=== PATIENT | female | born 1955 | race Caucasian/White ===

== ENCOUNTER 2016-12-28 08:53 | Outpatient (CLI) | payer MEDICARE ==
[2016-12-28 12:18] LABS: ALT (SGPT) 15 U/L (8-55); AST (SGOT) 17 U/L (5-34); Albumin 3.8 g/dL (3.4-4.8); Alkaline Phosphatase 74 U/L (40-150); Anion Gap 17 mmol/L (10-20); BUN (Urea Nitrogen) 24 mg/dL (9.8-20.1); Bilirubin, Total 0.4 mg/dL (0.2-1.2); Calc. Creatinine Clearance 0 mL/min (70-130); Calcium 9.2 mg/dL (7.8-10.44); Carbon Dioxide 25 mmol/L (23-31); Cardiac Risk 4.2 (Less than 4.5); Chloride 105 mmol/L (98-107); Cholesterol 178 mg/dl (< 200 Desired); Estimated GFR-MDRD 46; Globulin 3.4 g/dL (2.4-3.5); Glucose 141 mg/dL (80-115); HDL Cholesterol 42 mg/dL (>60 Neg Risk); LDL Cholesterol, Calculated 104 mg/dL; Potassium 4.9 mmol/L (3.5-5.1); Protein, Total 7.2 g/dL (6.0-8.3); Sodium 142 mmol/L (136-145); Triglycerides 159 mg/dL (Less than 150)
[2016-12-28 12:31] LABS: Hemoglobin A1c 5.7 % (4.0-6.0)
== END 2016-12-28 08:54 | disposition home or self-care (01) ==
LOC: HPCALD 08:53
PROVIDERS: ATTEND Family Medicine
DX: E78.2 Mixed hyperlipidemia (principal); R73.03 Prediabetes; I10 Essential (primary) hypertension
CPT/HCPCS: 36415; 80053; 80061; 83036

== ENCOUNTER 2017-09-14 09:58 | Outpatient (CLI) | payer MEDICARE ==
[2017-09-14 18:16] LABS: #Lymphocytes 1.5 thou/uL (1.20-3.40); #Monocytes 0.3 thou/uL (0.11-0.59); #Neutrophils 3.7 thou/uL (1.40-6.50); %Basophils 0.2 % (0.0-1.0); %Eosinophils 0.2 % (0.0-10.0); %Lymphocytes 26.7 % (21.0-51.0); %Neutrophils 66.9 % (42.0-75.0); Hemoglobin 11.6 g/dL (12.0-16.0); Mean Corpuscular HGB CONC 32.7 g/dL (32.0-36.0); Mean Corpuscular Hemoglobin 28.6 pg (27.0-31.0); Mean Corpuscular Volume 87.6 fl (81.0-99.0); Mean Platelet Volume 8.5 fL (7.4-10.4); Platelet Count 287 thou/uL (130-400); RBC Distribution Width 12.5 % (11.5-14.5); Red Blood Cell (RBC) Count 4.04 mill/uL (4.20-5.40); White Blood Cell (WBC) Count 5.5 thou/uL (4.8-10.8)
[2017-09-14 18:30] LABS: Anion Gap 14 mmol/L (10-20); BUN (Urea Nitrogen) 22 mg/dL (9.8-20.1); Calc. Creatinine Clearance 0 mL/min (70-130); Calcium 9.4 mg/dL (7.8-10.44); Carbon Dioxide 28 mmol/L (23-31); Chloride 99 mmol/L (98-107); Estimated GFR-MDRD 42; Glucose 112 mg/dL (80-115); Phosphorus 3.7 mg/dL (2.3-4.7); Potassium 4.2 mmol/L (3.5-5.1); Sodium 137 mmol/L (136-145)
[2017-09-14 19:03] LABS: Creatinine, Urine 52.78 mg/dL (47-110)
--- NOTE | 2017-09-14 21:50 | ULT ---
BILATERAL RENAL ULTRASOUND 09/14/17 Ultrasonography of the kidneys was performed for evaluation of chronic renal disease. The right kidney measures 9.0 x 5.3 x 5.3 cm. The left kidney measures 9.6 x 5.3 x 4.3 cm. Cortex is ample around each kidney. The cortical echogenicity is normal bilaterally. No mass or hydronephrosis was seen in either kidney. No images of the urinary bladder were provided. IMPRESSION: No significant renal finding. POS: HOME
[2017-09-16 11:13] LABS: ANA Symphony (Qualitative) Negative (Negative); ANA Symphony (Quantitative) 0.1 Ratio (<0.7 Negative); dsDNA IgG Antibody 7.5 IU/mL (<10 Negative)
== END 2017-09-14 09:59 | disposition home or self-care (01) ==
LOC: BURULT 09:58
PROVIDERS: ATTEND Internal Medicine Nephrology
DX: N18.3 Chronic kidney disease, stage 3 (moderate) (principal); E87.2 Acidosis
CPT/HCPCS: 36415; 76770; 80048; 82306; 82570; 83970; 84100; 84156; 85025; 86038; 86225

== ENCOUNTER 2018-05-17 20:24 | Observation (INO) | payer MEDICARE ==
[2018-05-17] MEDS ORDERED: predniSONE 20 MG TAB ONE (20:50)
[2018-05-17] MEDS ORDERED: AMOXicillin 250 MG CAP ONE (21:55)
--- NOTE | 2018-05-17 22:29 | RAD ---
CHEST TWO VIEWS: 05/17/18 The heart is normal in size. There is no vascular congestion, edema, or pleural effusion. There may b e some faint calcification in the aortic arch. Extensive degenerative changes are seen in the thoraci c spine. The patient probably has a hiatal hernia posterior to the heart. The lungs are mildly hypere xpanded. A thin linear line seen in the aorticopulmonary window is probably just normal structures. I doubt that it is a pneumomediastinum. IMPRESSION: No definite acute findings. POS: HOME
[2018-05-17 23:26] LABS: #Basophils 0.1 thou/uL (0.0-0.2); #Lymphocytes 0.9 thou/uL (1.20-3.40); #Monocytes 0.5 thou/uL (0.11-0.59); #Neutrophils 6.6 thou/uL (1.40-6.50); %Basophils 0.7 % (0.0-1.0); %Lymphocytes 11.5 % (21.0-51.0); %Monocytes 6.2 % (0.0-10.0); %Neutrophils 81.7 % (42.0-75.0); Anion Gap 18 mmol/L (10-20); BUN (Urea Nitrogen) 21 mg/dL (9.8-20.1); Calc. Creatinine Clearance 0 mL/min (70-130); Calcium 9.5 mg/dL (7.8-10.44); Carbon Dioxide 20 mmol/L (23-31); Chloride 101 mmol/L (98-107); Estimated GFR-MDRD 36; Glucose 178 mg/dL (80-115); Hemoglobin 10.6 g/dL (12.0-16.0); Mean Corpuscular HGB CONC 33.9 g/dL (32.0-36.0); Mean Corpuscular Hemoglobin 29.1 pg (27.0-31.0); Mean Corpuscular Volume 85.6 fL (78.0-98.0); Mean Platelet Volume 7.7 fL (7.4-10.4); Platelet Count 231 thou/uL (130-400); Potassium 3.7 mmol/L (3.5-5.1); RBC Distribution Width 14.5 % (11.5-14.5); Red Blood Cell (RBC) Count 3.63 mill/uL (4.20-5.40); Sodium 135 mmol/L (136-145); White Blood Cell (WBC) Count 8.1 thou/uL (4.8-10.8)
[2018-05-17] MEDS ORDERED: Benzonatate 100 MG CAP ONE (23:40)
[2018-05-18 03:52] VITALS: BMI 41.9
[2018-05-18] MEDS ORDERED: Ondansetron ODT 4 MG TAB SL PRN (04:37)
[2018-05-18] MEDS ORDERED: Acetaminophen 325 MG TAB PO PRN (04:37)
[2018-05-18] MEDS ORDERED: Ondansetron PF 4 MG/2 ML Vial IVP PRN (04:37)
[2018-05-18] MEDS ORDERED: HYDROcodone/Acetaminophen 5/325 mg Tablet PO PRN (04:37)
[2018-05-18] MEDS ORDERED: Benzonatate 100 MG CAP PO PRN (04:37)
[2018-05-18 04:58] VITALS: TEMP 97.4
[2018-05-18] MEDS: methylPREDNISolone Sod Succ/PF 125 MG/2 ML VIAL IVP SCH ×2 (05:28→12:30)
[2018-05-18] MEDS ORDERED: Hydrochlorothiazide 25 MG TAB PO SCH (09:00)
[2018-05-18] MEDS ORDERED: Non-Formulary Item 1 EACH (Lisinopril/Hydrochlorothiazide [Lisinopril-Hctz 10-12.5 Mg Tab PO SCH (09:00)
[2018-05-18] MEDS ORDERED: Aspirin 81 mg Enteric Coated Tablet PO SCH (09:00)
[2018-05-18] MEDS ORDERED: FLUoxetine HCl 10 MG CAP PO SCH (09:00)
[2018-05-18] MEDS ORDERED: Oxybutynin 5 MG TAB PO SCH (09:00)
[2018-05-18] MEDS ORDERED: Amlodipine 5 MG TAB PO SCH (09:00)
[2018-05-18] MEDS ORDERED: FLUOXETINE HCL PO SCH (09:00)
[2018-05-18] MEDS ORDERED: Lisinopril 10 MG TAB PO SCH (09:00)
--- NOTE | 2018-05-18 09:03 | HP ---
DATE OF ADMISSION and DISCHARGE: 05/18/2018 CHIEF COMPLAINT: Dyspnea, hypoxia. HISTORY OF PRESENT ILLNESS: A 62-year-old female, chronic smoker, presented to [facility] Emergency Department with complaints of dyspnea progressing over the last 2-3 days. She was notably hypoxic and was subsequently started on supplemental oxygen and provided nebulized treatments. The patient to this point has not had any formal diagnosis of COPD; however, as noted, she is a chronic smoker and a chest x-ray did reveal the lungs to be mildly hyperexpanded. There are no acute findings of pneumonia or other infectious etiology in the emergency department. The patient's respiratory status only mildly improved in the emergency department, thus she was admitted to the floor secondary to her hypoxia and to receive further care for her suspected chronic obstructive pulmonary disease exacerbation. Due to the lack of formal diagnosis , she was not on a controller medicine and has not had a rescue inhaler available to her home setting. Upon evaluation of the patient on the floor, she does feel to be improved as far as her respiratory status. She is currently still on supplemental oxygen. She denies having had any fevers or chills at home. She states she is more motivated to pursue smoking cessation secondary to this admission. PAST MEDICAL HISTORY: Hypertension, gastroesophageal reflux disease, hyperlipidemia, anxiety, depression, chronic back pain, sciatica. PAST SURGICAL HISTORY: Vein stripping, stent placement, cholecystectomy, sinus surgery, hysterectomy, back surgery with lumbar fusion on 02/2016, colonoscopy on 07/06/2011 was normal. SOCIAL HISTORY: Patient lives at home. She is a chronic smoker. Denies ETOH or illicit drug use. ALLERGIES: PENICILLIN. FAMILY HISTORY: Noncontributory. CURRENT MEDICATIONS: Include aspirin 81 mg p.o. daily, atorvastatin 40 mg p.o. at bedtime, fluoxetine 20 mg p.o. daily, hydrochlorothiazide 12.5 mg p.o. daily , lisinopril 10 mg p.o. daily, amlodipine 5 mg p.o. daily, Mirtazapine 15 mg p.o. at bedtime, oxybutynin 5 mg p.o. daily, pantoprazole 40 mg p.o. daily, Ambien 10 mg p.o. at bedtime. REVIEW OF SYSTEMS: General: Denies fever or chills. Ear, Nose, and Throat: Denies sore throat, nasal drainage or congestion. Cardiovascular: Denies chest pain or palpitations. Respiratory: Complains of intermittent cough, shortness of breath. Gastrointestinal: Denies abdominal pain, nausea, vomiting , diarrhea or constipation. Genitourinary: Denies dysuria. Musculoskeletal: Denies joint pain or swelling. Dermatologic: Denies rash. Neurologic: Denies headache. LABORATORY DATA: White count was 8.1, H&H is 10.6 and 31.1, platelets 231. Chemistry: Sodium 135, potassium 3.7, BUN 21, creatinine 1.46, glucose is 170. PHYSICAL EXAMINATION: VITAL SIGNS: Temperature is 97.4, pulse is 99, respiratory rate is 22, oxygen 94% on 2 liters, blood pressure 193/92. GENERAL: The patient is alert and oriented, in no acute distress. She is overweight. HEENT: Face: No asymmetry. Eyes: Extraocular muscles are intact bilaterally. No discharge. Clear conjunctivae. Head: Normocephalic, atraumatic. Moist mucous membranes. No oropharyngeal erythema. NECK: Supple, full range of motion. No meningeal signs. No lymphadenopathy. CARDIOVASCULAR: Borderline tachycardia. Normal S1 and S2. No murmurs. RESPIRATORY: Few scattered wheezes, no rhonchi. No respiratory distress. GASTROINTESTINAL: Soft, nontender to palpation. EXTREMITIES: No clubbing, cyanosis. There is pedal edema to the right foot. Varicose veins bilaterally to the lower extremities. SKIN: Well-healed vertical scar traversing the anterior right knee. NEUROLOGIC: Nonfocal. Cranial nerves II through XII are grossly intact. BACK: Well-healed two vertical scars to each side of the lumbar spine measuring approximately 8 cm each. ASSESSMENT AND PLAN: 1. Chronic obstructive pulmonary disease exacerbation. The patient has been started on IV Solu-Medrol. This will be continued. She is on supplemental oxygen. This will be weaned down as appropriate as tolerated. She will continue DuoNebs as scheduled. The patient will be started on a controller medication to be continued as an outpatient along with providing a rescue inhaler for p.r.n. use. She has been counseled on smoking cessation. 2. Hypoxia, currently on supplemental O2. This will be weaned as tolerated to keep oxygen sats greater than 92%. 3. Hypertension. Blood pressure is currently elevated. She will be receiving her medication shortly. She is asymptomatic with no chest pain or headache. 4. Type 2 diabetes mellitus. We will continue her usual oral medication for this. Accu-Cheks a.c. and at bedtime. 5. Hyperlipidemia. We will continue patient's statin. 6. Anxiety, depression. We will continue on the patient's SSRI prophylaxis. We will continue the patient's PPI for gastrointestinal prophylaxis. We will provide Lovenox for deep venous thrombosis prophylaxis. DISCHARGE SUMMARY: Pt was able to quickly wean back to room air and keep O2 sats greater than 92%. She feels ready to d/c home and may f/u with myself in clinic next week. Will d/c with her usual medications along with Anoro 1 inh daily, Albuterol inh 1-2 puffs q6hr prn, prednisone 20mg - 2 tabs x3 days, then 1 tab x3 days and zpak. As noted, she is motivated to quit smoking now. NICK
[2018-05-18 09:30] VITALS: BP 170/81
[2018-05-18] MEDS ORDERED: Atorvastatin Calcium 40 MG TAB PO SCH (21:00)
[2018-05-18] MEDS ORDERED: Zolpidem Tartrate 5 MG TAB PO SCH (21:00)
[2018-05-18] MEDS ORDERED: Enoxaparin Sodium 30 MG/0.3 ML SYRINGE SC SCH (21:00)
[2018-05-18] MEDS ORDERED: Mirtazapine 15 MG TAB PO SCH (21:00)
== END 2018-05-18 13:10 | disposition home or self-care (01) ==
LOC: BURERS 20:24 → BURMED 05-18 02:43 → INTOOBSV 05-18 02:43
PROVIDERS: ADMIT Family Medicine; ATTEND Family Medicine
DX: J44.1 Chronic obstructive pulmonary disease with (acute) exacerbation (principal); R09.02 Hypoxemia; I10 Essential (primary) hypertension; F17.210 Nicotine dependence, cigarettes, uncomplicated; K21.9 Gastro-esophageal reflux disease without esophagitis; E78.5 Hyperlipidemia, unspecified; F41.9 Anxiety disorder, unspecified; F32.9 Major depressive disorder, single episode, unspecified; G89.29 Other chronic pain; M54.40 Lumbago with sciatica, unspecified side; E11.9 Type 2 diabetes mellitus without complications; Z79.82 Long term (current) use of aspirin; Z79.899 Other long term (current) drug therapy; Z88.0 Allergy status to penicillin; Z95.5 Presence of coronary angioplasty implant and graft; Z98.1 Arthrodesis status
CPT/HCPCS: 71046; 80048; 85025; 90471; 90686; 94640; 94760; 96361; 96365; 96375; 96376; G0008; G0378; J1956; J2930; J7506; J7620

== ENCOUNTER 2019-02-22 11:35 | Emergency (ER) | payer MEDICARE ==
[2019-02-22] MEDS ORDERED: Ondansetron PF 4 MG/2 ML Vial ONE (12:00)
[2019-02-22 12:02] LABS: #Lymphocytes 0.7 thou/uL (1.20-3.40); #Monocytes 0.3 thou/uL (0.11-0.59); #Neutrophils 3.4 thou/uL (1.40-6.50); %Lymphocytes 14.8 % (21.0-51.0); %Monocytes 7.1 % (0.0-10.0); Hemoglobin 11.2 g/dL (12.0-16.0); Mean Corpuscular Hemoglobin 27.1 pg (27.0-31.0); Mean Corpuscular Volume 84.6 fL (78.0-98.0); Mean Platelet Volume 7.7 fL (7.4-10.4); Platelet Count 261 thou/uL (130-400); RBC Distribution Width 14.7 % (11.5-14.5); Red Blood Cell (RBC) Count 4.12 mill/uL (4.20-5.40); White Blood Cell (WBC) Count 4.5 thou/uL (4.8-10.8)
[2019-02-22 12:21] LABS: ALT (SGPT) 19 U/L (8-55); AST (SGOT) 33 U/L (5-34); Alkaline Phosphatase 85 U/L (40-150); Anion Gap 16 mmol/L (10-20); BUN (Urea Nitrogen) 17 mg/dL (9.8-20.1); Bilirubin, Total 0.3 mg/dL (0.2-1.2); Calc. Creatinine Clearance 0 mL/min (70-130); Calcium 10.1 mg/dL (7.8-10.44); Carbon Dioxide 26 mmol/L (23-31); Chloride 87 mmol/L (98-107); Estimated GFR-MDRD 67; Globulin 3.5 g/dL (2.4-3.5); Glucose 138 mg/dL (80-115); Lipase 25 U/L (8-78); Potassium 4.5 mmol/L (3.5-5.1); Protein, Total 7.5 g/dL (6.0-8.3); Sodium 124 mmol/L (136-145)
[2019-02-22 12:27] LABS: Bilirubin Negative (Negative); Blood, Urine Trace (Negative); Clarity Clear (Clear); Glucose, Urine (Dipstick) Negative (Negative); Leukocyte Negative (Negative); Nitrite Negative (Negative); Protein, Urine (Dipstick) 30 mg/dL (Neg-Trace); Urobilinogen 0.2 mg/dL (Less than 2)
[2019-02-22 12:32] LABS: Bacteria/HPF Rare-Few HPF (None Seen); Squamous Epithelial 0-3 HPF (0-3); WBC/HPF 0-3 HPF (0-3)
[2019-02-22 12:49] LABS: RBC/HPF 0-3 HPF (0-3)
== END 2019-02-22 13:58 | disposition home or self-care (01) ==
LOC: BURERS 11:35
DX: E87.1 Hypo-osmolality and hyponatremia (principal); E11.9 Type 2 diabetes mellitus without complications; K21.9 Gastro-esophageal reflux disease without esophagitis; E78.5 Hyperlipidemia, unspecified; F32.9 Major depressive disorder, single episode, unspecified; F17.210 Nicotine dependence, cigarettes, uncomplicated; Z79.899 Other long term (current) drug therapy; Z79.84 Long term (current) use of oral hypoglycemic drugs
CPT/HCPCS: 80053; 81003; 81015; 83605; 83690; 83930; 83935; 84300; 84484; 85025; 93005; 94760; 96361; 96374; J2405

== ENCOUNTER 2020-01-04 11:14 | Outpatient (CLI) | payer MEDICARE ==
--- NOTE | 2020-01-04 18:21 | CT ---
CT OF THE BRAIN WITHOUT CONTRAST: 01/04/[address] of the brain was performed for evaluation following trauma. The ventricles are normal in si ze with no shift. No intracranial bleeding or extra-axial hematoma was seen. There is no sign of mass , edema, or stroke. Mild diffuse atrophy is present. There is a soft tissue scalp hematoma over the left frontotemporal region. The underlying skull appea rs intact. No skull fractures were seen. The visible paranasal sinuses and mastoid air cells are erwin r. IMPRESSION: No acute intracranial findings. POS: HOME
--- NOTE | 2020-01-04 18:24 | CT ---
CT OF THE FACE AND SINUSES: 01/04/[address] of the face and sinuses was performed following trauma. Axial slices were acquired, followe d by coronal and sagittal reconstructions. The soft tissue scalp hematoma is seen in the left frontotemporal region with no underlying bony abno rmality visible. The facial bones appear intact. The zygomatic arches, nasal bones, and maxilla appea r normal, as do the visible portions of the upper mandible. The paranasal sinuses are clear. There ar e no retro-orbital abnormalities. A small cleft seen in the lateral wall of the right orbit is remote from the site of injury so it is felt to be either developmental or due to old trauma. IMPRESSION: No acute fracture seen. POS: HOME
== END 2020-01-04 11:15 | disposition home or self-care (01) ==
LOC: BURCT 11:14
PROVIDERS: ATTEND Registered Nurse Community Health
DX: S09.90XA Unspecified injury of head, initial encounter (principal); S09.93XA Unspecified injury of face, initial encounter
CPT/HCPCS: 70450

== ENCOUNTER 2020-04-04 04:45 | Emergency (ER) | payer MEDICARE ==
[2020-04-04] MEDS ORDERED: Lidocaine 2% w/Epinephrine 1:200K 20 ML VIAL ONE (04:59)
[2020-04-04] MEDS ORDERED: Boostrix 0.5 ML VIAL ONE (05:31)
--- NOTE | 2020-04-04 07:29 | CT ---
PRELIMINARY REPORT/[facility]/EMERGENCY AFTER HOURS PROCEDURE: EXAM: CT Head Without Intravenous Contrast. CLINICAL HISTORY: S/P FALL, PT STATES SHE FELL AND HIT HER HEAD ON COFFEE TABLE, LAC TO FOREHEAD TECHNIQUE: Axial computed tomography images of the head/brain without intravenous contrast. COMPARISON: None provided. FINDINGS: BRAIN: No acute intraparenchymal hemorrhage. No mass lesion. No CT evidence for acute territorial infarct. N o midline shift or extra-axial collection. VENTRICLES: No hydrocephalus. ORBITS: The orbits are unremarkable. SINUSES AND MASTOIDS: The paranasal sinuses and mastoid air cells are clear. SOFT TISSUES: Right frontal scalp injury noted. No radiopaque foreign body is seen. BONES: No acute skull fracture. IMPRESSION: No acute intracranial abnormality. ELECTRONICALLY SIGNED BY: Anthony Fritz MD Apr 04, 2020 5:27:00 AM CDT This report is intended for review by the ordering physician only, in accordance of law. If you recei ve this report in error, please call [facility] at [phone]. FINAL REPORT CT OF THE BRAIN WITHOUT CONTRAST: Date: 04/04/2020 Comparison is made with the 01/04/2020 study. The ventricles remain normal in size and show no shift. No intracranial bleeding or extra-axial hemat natalie present. No sign of mass, stroke, or edema. A small area of swelling is seen in the right frontal scalp from the recent injury. The underlying skull appears intact. The visible paranasal sinuses are clear, as are the mastoid air cells. IMPRESSION: No acute intracranial findings. Report in agreement with preliminary reading by [facility]. POS: HOME
== END 2020-04-04 06:34 | disposition home or self-care (01) ==
LOC: BURERS 04:45
DX: S01.81XA Laceration without foreign body of other part of head, initial encounter (principal); W01.198A Fall on same level from slipping, tripping and stumbling with subsequent striking against other object, initial encounter
CPT/HCPCS: 12053; 70450; 90471; 90715

== ENCOUNTER 2020-06-18 12:28 | Outpatient (CLI) | payer MEDICARE ==
--- NOTE | 2020-06-18 18:52 | RAD ---
LUMBAR SPINE 4 VIEWS: Date: 06/18/2020 An AP view is provided, as well as three lateral views in neutral, flexion, and extension. There has been a prior posterior fusion with pedicle screws extending from L4 through S1. There is slight spond ylolisthesis of L4 on L5. The anterior slippage is by the following amounts: Neutral: 3 mm Flexion: 4.5 mm Extension: 4.2 mm Aside from this, there is some mild disc space narrowing at L2-L3. Some mild degenerative changes are seen in the low thoracic spine. The aorta and iliac arteries are densely calcified. IMPRESSION: Minimal movement at L4-L5 with flexion and extension POS: HOME
== END 2020-06-18 12:29 | disposition home or self-care (01) ==
LOC: BURRAD 12:28
PROVIDERS: ATTEND Neurological Surgery
DX: M54.16 Radiculopathy, lumbar region (principal)
CPT/HCPCS: 72120

== ENCOUNTER 2020-07-01 12:15 | Emergency (ER) | payer MEDICARE ==
[2020-07-01] MEDS ORDERED: methylPREDNISolone Sod Succ/PF 125 MG/2 ML VIAL ONE (13:06)
== END 2020-07-01 13:35 | disposition home or self-care (01) ==
LOC: BURERS 12:15
DX: M54.16 Radiculopathy, lumbar region (principal); E11.9 Type 2 diabetes mellitus without complications; K21.9 Gastro-esophageal reflux disease without esophagitis; E78.2 Mixed hyperlipidemia; I10 Essential (primary) hypertension; M10.9 Gout, unspecified; F17.210 Nicotine dependence, cigarettes, uncomplicated; Z79.51 Long term (current) use of inhaled steroids; Z79.899 Other long term (current) drug therapy
CPT/HCPCS: 96372; 99406; J2930

== ENCOUNTER 2020-10-14 15:22 | Outpatient (CLI) | payer MEDICARE | END 2020-10-14 15:23 | disposition home or self-care (01) | LOC: BURRAD 15:22 | PROVIDERS: ATTEND Neurological Surgery | DX: M43.16 Spondylolisthesis, lumbar region (principal) | CPT/HCPCS: 72100 ==

== ENCOUNTER 2021-02-03 10:32 | Outpatient (CLI) | payer MEDICARE | END 2021-02-03 10:33 | disposition home or self-care (01) | LOC: BURCT 10:32 | PROVIDERS: ATTEND Family Medicine | DX: R10.9 Unspecified abdominal pain (principal); K44.9 Diaphragmatic hernia without obstruction or gangrene; K59.00 Constipation, unspecified; N28.89 Other specified disorders of kidney and ureter; R91.8 Other nonspecific abnormal finding of lung field | CPT/HCPCS: 74176 ==

== ENCOUNTER 2021-03-06 12:08 | Outpatient (CLI) | payer MEDICARE | END 2021-03-06 12:09 | disposition home or self-care (01) | LOC: BURRAD 12:08 | PROVIDERS: ATTEND Neurological Surgery | DX: M51.16 Intervertebral disc disorders with radiculopathy, lumbar region (principal) | CPT/HCPCS: 72100 ==

== ENCOUNTER 2021-09-13 14:52 | Emergency (ER) | payer MEDICARE ==
[2021-09-13] MEDS ORDERED: Fentanyl 100 MCG/2 ML VIAL ONE ×3 (15:22→20:42)
[2021-09-13] MEDS ORDERED: Bacitracin 1 PK ONE (17:15)
[2021-09-13] MEDS ORDERED: Famotidine In NaCl 20 mg/50 ml Premix Bag ONE (17:31)
== END 2021-09-13 21:19 | disposition short-term general hospital (02) ==
LOC: BURERS 14:52
DX: S42.461A Displaced fracture of medial condyle of right humerus, initial encounter for closed fracture (principal); S80.01XA Contusion of right knee, initial encounter; S00.81XA Abrasion of other part of head, initial encounter; I10 Essential (primary) hypertension; K21.9 Gastro-esophageal reflux disease without esophagitis; E78.2 Mixed hyperlipidemia; M10.9 Gout, unspecified; E11.9 Type 2 diabetes mellitus without complications; F17.210 Nicotine dependence, cigarettes, uncomplicated; W10.9XXA Fall (on) (from) unspecified stairs and steps, initial encounter; Z79.82 Long term (current) use of aspirin; Z79.899 Other long term (current) drug therapy
CPT/HCPCS: 29105; 96365; 96375; 96376; J3010

== ENCOUNTER 2023-08-10 16:23 | Observation (INO) | payer MEDICARE ==
[2023-08-10] MEDS ORDERED: Ondansetron PF 4 MG/2 ML Vial ONE (16:50)
[2023-08-10 17:02] LABS: #Basophils 0.1 thou/uL (0.0-0.2); #Lymphocytes 1.2 thou/uL (1.20-3.40); #Monocytes 0.5 thou/uL (0.11-0.59); #Neutrophils 5.9 thou/uL (1.40-6.50); %Basophils 0.7 % (0.0-1.0); %Lymphocytes 15.7 % (21.0-51.0); %Monocytes 7.1 % (0.0-10.0); %Neutrophils 76.5 % (42.0-75.0); Hematocrit 31.5 % (36.0-47.0); Hemoglobin 10.3 g/dL (12.0-16.0); Mean Corpuscular HGB CONC 32.6 g/dL (32.0-36.0); Mean Corpuscular Hemoglobin 29.8 pg (27.0-31.0); Mean Corpuscular Volume 91.4 fl (78.0-98.0); Mean Platelet Volume 6.6 fL (7.4-10.4); Platelet Count 272 10x3/uL (130-400); RBC Distribution Width 13.3 % (11.5-14.5); Red Blood Cell (RBC) Count 3.45 mill/uL (4.20-5.40); White Blood Cell (WBC) Count 7.7 10x3/uL (4.8-10.8)
[2023-08-10 17:17] LABS: ALT (SGPT) 10 U/L (8-55); AST (SGOT) 15 U/L (5-34); Albumin 3.5 g/dL (3.4-4.8); Alkaline Phosphatase 89 U/L (40-110); Anion Gap 16 mmol/L (10-20); BUN (Urea Nitrogen) 42 mg/dL (9.8-20.1); Bilirubin, Total 0.3 mg/dL (0.2-1.2); Calc. Creatinine Clearance 0 mL/min (70-130); Calcium 9.6 mg/dL (7.8-10.44); Carbon Dioxide 25 mmol/L (23-31); Chloride 98 mmol/L (98-107); Estimated GFR 16; Globulin 3.5 g/dL (2.4-3.5); Glucose 114 mg/dL (80-115); Lipase 27 U/L (8-78); Potassium 4.8 mmol/L (3.5-5.1); Sodium 134 mmol/L (136-145)
[2023-08-10 17:45] LABS: Bilirubin Negative (Negative); Blood, Urine Negative (Negative); Clarity Clear (Clear); Glucose, Urine (Dipstick) Negative (Negative); Ketone, Urine Negative (Negative); Leukocyte Negative (Negative); Nitrite Negative (Negative); Protein, Urine (Dipstick) > or equal to 300 mg/dL (Neg-Trace); Urobilinogen 0.2 mg/dL (Less than 2); pH, Urine 6.5 (5.0-9.0)
[2023-08-10 17:51] LABS: Bacteria/HPF Rare-Few HPF (None Seen); CAUTI Indications for Culture Dysuria,urgency,freq; RBC/HPF 0-3 HPF (0-3); Squamous Epithelial 0-3 HPF (0-3); WBC/HPF 0-3 HPF (0-3)
[2023-08-10 17:52] LABS: Urine Culture Reflex No No
[2023-08-10 18:49] VITALS: BMI 30.4
[2023-08-10] MEDS ORDERED: HYDROcodone/Acetaminophen 10/325 mg Tablet PO PRN (20:06)
[2023-08-10] MEDS ORDERED: Nicotine 21 MG PATCH TD PRN (20:06)
[2023-08-10] MEDS ORDERED: Ipratropium/Albuterol 3 ML NEB NEB PRN (20:06)
[2023-08-10] MEDS ORDERED: Albuterol 200 PUFF (6.7GM INHALER) INH PRN (20:06)
[2023-08-10] MEDS ORDERED: Acetaminophen 500 MG TAB PO PRN (20:06)
[2023-08-10 20:53] LABS: SARS-CoV-2 NAA Rapid Test Not Detected (NotDetected)
[2023-08-10] MEDS ORDERED: Atorvastatin Calcium 40 MG TAB PO SCH (21:00)
[2023-08-10] MEDS ORDERED: traZODone HCl 50 MG TAB PO SCH (21:00)
[2023-08-10] MEDS: hydrALAZINE 25 MG TAB PO SCH ×2 (21:17→21:23)
[2023-08-10] MEDS: Oxybutynin 5 MG TAB PO SCH (21:18)
[2023-08-10] MEDS: busPIRone HCl 5 MG TAB PO SCH (21:18)
[2023-08-10] MEDS: Metoprolol Tartrate 50 MG TAB PO SCH (21:18)
[2023-08-10] MEDS: Gabapentin 100 MG CAP PO SCH (21:19)
[2023-08-10] MEDS: Lisinopril 20 MG TAB PO SCH (21:20)
[2023-08-11] MEDS ORDERED: Calcium Carbonate 500 MG ChewTAB PO PRN (01:00)
[2023-08-11] MEDS ORDERED: Ondansetron PF 4 MG/2 ML Vial IVP PRN (03:00)
[2023-08-11] MEDS ORDERED: Sodium Chloride 0.9% 1,000 ML IV SCH (03:00)
[2023-08-11] MEDS ORDERED: Ondansetron ODT 4 MG TAB SL PRN (03:00)
[2023-08-11 05:21] LABS: Anion Gap 11 mmol/L (10-20); BUN (Urea Nitrogen) 37 mg/dL (9.8-20.1); Calc. Creatinine Clearance 29 mL/min (70-130); Calcium 8.8 mg/dL (7.8-10.44); Carbon Dioxide 24 mmol/L (23-31); Chloride 105 mmol/L (98-107); Estimated GFR 19; Glucose 99 mg/dL (80-115); Potassium 4.3 mmol/L (3.5-5.1); Sodium 136 mmol/L (136-145)
[2023-08-11] MEDS: Metoprolol Tartrate 50 MG TAB PO SCH (08:50)
[2023-08-11] MEDS: busPIRone HCl 5 MG TAB PO SCH (08:51)
[2023-08-11] MEDS: Lisinopril 20 MG TAB PO SCH (08:51)
[2023-08-11] MEDS: hydrALAZINE 25 MG TAB PO SCH (08:52)
[2023-08-11] MEDS: Gabapentin 100 MG CAP PO SCH (08:53)
[2023-08-11] MEDS: Oxybutynin 5 MG TAB PO SCH (08:53)
[2023-08-11] MEDS ORDERED: Aspirin 81 mg Enteric Coated Tablet PO SCH (09:00)
[2023-08-11] MEDS ORDERED: Allopurinol 100 MG TAB PO SCH (09:00)
[2023-08-11] MEDS ORDERED: DULoxetine 30 MG CAP PO SCH (09:00)
[2023-08-11 11:31] VITALS: BP 158/70; TEMP 98.1
== END 2023-08-11 13:45 | disposition home or self-care (01) ==
LOC: BURERS 16:23 → BURMED 18:10
PROVIDERS: ADMIT Family Medicine; ATTEND Family Medicine
DX: E86.0 Dehydration (principal); I13.0 Hypertensive heart and chronic kidney disease with heart failure and stage 1 through stage 4 chronic kidney disease, or unspecified chronic kidney disease; I50.30 Unspecified diastolic (congestive) heart failure; N18.4 Chronic kidney disease, stage 4 (severe); F41.9 Anxiety disorder, unspecified; N17.9 Acute kidney failure, unspecified; E78.5 Hyperlipidemia, unspecified; F32.A Depression, unspecified; F17.210 Nicotine dependence, cigarettes, uncomplicated; Z90.49 Acquired absence of other specified parts of digestive tract; Z90.710 Acquired absence of both cervix and uterus; Z88.0 Allergy status to penicillin; Z88.8 Allergy status to other drugs, medicaments and biological substances; Z79.899 Other long term (current) drug therapy
CPT/HCPCS: 36415; 80048; 80053; 81001; 83690; 85025; G0378; J2405; J7050; U0002

== ENCOUNTER 2023-08-14 12:40 | Emergency (ER) | payer MEDICARE ==
[2023-08-14] MEDS ORDERED: Ondansetron PF 4 MG/2 ML Vial ONE (13:17)
[2023-08-14 13:29] LABS: #Basophils 0.1 thou/uL (0.0-0.2); #Monocytes 0.3 thou/uL (0.11-0.59); %Basophils 0.9 % (0.0-1.0); %Eosinophils 0.1 % (0.0-10.0); %Lymphocytes 16.2 % (21.0-51.0); %Monocytes 5.1 % (0.0-10.0); %Neutrophils 77.8 % (42.0-75.0); Hematocrit 30.6 % (36.0-47.0); Hemoglobin 9.8 g/dL (12.0-16.0); Mean Corpuscular Hemoglobin 29.8 pg (27.0-31.0); Mean Corpuscular Volume 93.2 fl (78.0-98.0); Mean Platelet Volume 5.6 fL (7.4-10.4); Platelet Count 252 10x3/uL (130-400); RBC Distribution Width 13.6 % (11.5-14.5); Red Blood Cell (RBC) Count 3.28 mill/uL (4.20-5.40); White Blood Cell (WBC) Count 6.4 10x3/uL (4.8-10.8)
[2023-08-14 13:47] LABS: ALT (SGPT) 10 U/L (8-55); AST (SGOT) 16 U/L (5-34); Albumin 3.4 g/dL (3.4-4.8); Alkaline Phosphatase 78 U/L (40-110); Anion Gap 16 mmol/L (10-20); BUN (Urea Nitrogen) 28 mg/dL (9.8-20.1); Bilirubin, Total 0.4 mg/dL (0.2-1.2); Calc. Creatinine Clearance 0 mL/min (70-130); Calcium 9.8 mg/dL (7.8-10.44); Carbon Dioxide 23 mmol/L (23-31); Chloride 102 mmol/L (98-107); Estimated GFR 25; Globulin 2.9 g/dL (2.4-3.5); Glucose 123 mg/dL (80-115); Potassium 5.2 mmol/L (3.5-5.1); Protein, Total 6.3 g/dL (5.8-8.1); Sodium 136 mmol/L (136-145); Troponin I Less than 0.010 ng/mL (< 0.028)
[2023-08-14 13:54] LABS: Bilirubin Negative (Negative); Blood, Urine Negative (Negative); Clarity Clear (Clear); Glucose, Urine (Dipstick) Negative (Negative); Ketone, Urine Negative (Negative); Leukocyte Negative (Negative); Nitrite Negative (Negative); Protein, Urine (Dipstick) > or equal to 300 mg/dL (Neg-Trace); Specific Gravity, Urine 1.015 (1.005-1.030); Urobilinogen 0.2 mg/dL (Less than 2); pH, Urine 6.5 (5.0-9.0)
[2023-08-14 14:00] LABS: Bacteria/HPF 1+ HPF (None Seen); CAUTI Indications for Culture Acute Hematuria; WBC/HPF 0-3 HPF (0-3)
[2023-08-14 14:01] LABS: Urine Culture Reflex No No
== END 2023-08-14 16:08 | disposition home or self-care (01) ==
LOC: BURERS 12:40
DX: R53.1 Weakness (principal); E11.40 Type 2 diabetes mellitus with diabetic neuropathy, unspecified; I10 Essential (primary) hypertension; E78.00 Pure hypercholesterolemia, unspecified; F17.210 Nicotine dependence, cigarettes, uncomplicated; Z79.899 Other long term (current) drug therapy
CPT/HCPCS: 74176; 80053; 81001; 84484; 85025; 93005; 96374; J2405

== ENCOUNTER 2024-07-09 15:32 | Emergency (ER) | payer MEDICARE ==
[2024-07-09 16:18] LABS: #Basophils 0.1 thou/uL (0.0-0.2); #Lymphocytes 1.1 thou/uL (1.20-3.40); #Monocytes 0.5 thou/uL (0.11-0.59); %Basophils 0.9 % (0.0-1.0); %Lymphocytes 17.1 % (21.0-51.0); %Monocytes 7.1 % (0.0-10.0); %Neutrophils 74.9 % (42.0-75.0); Hematocrit 36.7 % (36.0-47.0); Hemoglobin 11.6 g/dL (12.0-16.0); Mean Corpuscular HGB CONC 31.6 g/dL (32.0-36.0); Mean Corpuscular Hemoglobin 28.5 pg (27.0-31.0); Mean Corpuscular Volume 90.2 fl (78.0-98.0); Mean Platelet Volume 5.9 fL (7.4-10.4); Platelet Count 180 10x3/uL (130-400); RBC Distribution Width 13.4 % (11.5-14.5); Red Blood Cell (RBC) Count 4.07 mill/uL (4.20-5.40); White Blood Cell (WBC) Count 6.6 10x3/uL (4.8-10.8)
[2024-07-09 16:32] LABS: ALT (SGPT) 8 U/L (8-55); AST (SGOT) 13 U/L (5-34); Albumin 2.9 g/dL (3.4-4.8); Alkaline Phosphatase 75 U/L (40-110); Anion Gap 15 mmol/L (10-20); BUN (Urea Nitrogen) 32 mg/dL (9.8-20.1); Bilirubin, Total 0.4 mg/dL (0.2-1.2); Calc. Creatinine Clearance 0 mL/min (70-130); Calcium 8.9 mg/dL (7.8-10.44); Carbon Dioxide 24 mmol/L (23-31); Chloride 104 mmol/L (98-107); Estimated GFR 24; Globulin 3.4 g/dL (2.4-3.5); Glucose 104 mg/dL (80-115); Lipase 26 U/L (8-78); Potassium 4.1 mmol/L (3.5-5.1); Protein, Total 6.3 g/dL (5.8-8.1); Sodium 139 mmol/L (136-145)
== END 2024-07-09 17:16 | disposition home or self-care (01) ==
LOC: BURERS 15:32
DX: R53.1 Weakness (principal); K21.9 Gastro-esophageal reflux disease without esophagitis; I10 Essential (primary) hypertension; G89.29 Other chronic pain; M54.9 Dorsalgia, unspecified; J44.9 Chronic obstructive pulmonary disease, unspecified; E11.40 Type 2 diabetes mellitus with diabetic neuropathy, unspecified; M10.9 Gout, unspecified; F17.210 Nicotine dependence, cigarettes, uncomplicated; Z79.899 Other long term (current) drug therapy
CPT/HCPCS: 36415; 80053; 83690; 85025; 96360